=== PATIENT | female | born 1945 | race Caucasian/White ===

== ENCOUNTER 2019-03-08 10:38 | Emergency (ER) | payer MEDICARE ==
[2019-03-08 11:13] VITALS: BP 135/84
--- NOTE | 2019-03-08 11:21 | UC ---
UC General HPI - HPI Summary HPI Summary: per triage, Urinary frequency, blood in urine and burning since this morning. Denies lower back pain. NO FEVER, ABDOMINAL OR FLANK PAIN. - History of Current Complaint Chief Complaint: UCGU Stated Complaint: URINARY COMPLAINT Time Seen by Provider: 03/08/19 11:01 Hx Obtained From: Patient Onset/Duration: Gradual Onset Timing: Constant Pain Intensity: 0 - Allergy/Home Medications Allergies/Adverse Reactions: Allergies Allergy/AdvReac Type Severity Reaction Status Date / Time No Known Allergies Allergy Verified 03/08/19 11:09 Home Medications: Home Medications Apixaban* [Eliquis*] 5 mg PO BID 03/08/19 [History Confirmed 03/08/19] Aspirin EC TAB* [Ecotrin EC Low Dose 81 MG*] 81 mg PO DAILY 03/08/19 [History Confirmed 03/08/19] Biotin 5,000 mcg PO DAILY 03/08/19 [History Confirmed 03/08/19] Cranberry 400 mg PO DAILY 03/08/19 [History Confirmed 03/08/19] Fexofenadine (NF) [Nora 180 (NF)] 180 mg PO DAILY 03/08/19 [History Confirmed 03/08/19] Fluticasone Furoate [Arnuity Ellipta] 50 mcg IH DAILY 03/08/19 [History Confirmed 03/08/19] Furosemide TAB* [Lasix TAB*] 20 mg PO BID 03/08/19 [History Confirmed 03/08/19] Levothyroxine TAB* [Synthroid TAB*] 25 mcg PO 0800 03/08/19 [History Confirmed 03/08/19] Lysine 500 mg PO DAILY 03/08/19 [History Confirmed 03/08/19] Metoprolol Succinate XL TAB* [Toprol XL TAB*] 75 mg PO DAILY 03/08/19 [History Confirmed 03/08/19] Multivitamins/Minerals TAB* [Theragran/minerals TAB*] 1 tab PO DAILY 03/08/19 [ History Confirmed 03/08/19] Provo-3 Fatty Acids [Fish Oil Concentrate] 8,000 mg PO BID 03/08/19 [History Confirmed 03/08/19] Ramipril CAP* [Altace CAP*] 2.5 mg PO DAILY 03/08/19 [History Confirmed 03/08/19 ] Simvastatin [Zocor] 40 mg PO DAILY 03/08/19 [History Confirmed 03/08/19] Super D Immune Complex 1 tab PO DAILY 03/08/19 [History Confirmed 03/08/19] Venlafaxine EXT RELEASE CAP* [Effexor Xr CAP*] 150 mg PO DAILY 03/08/19 [ History Confirmed 03/08/19] Vitamin B Complex CAP* [B Complex CAP*] 1 cap PO DAILY 03/08/19 [History Confirmed 03/08/19] metFORMIN* [Glucophage 500 MG TAB *] 500 mg PO BID 03/08/19 [History Confirmed 03/08/19] PMH/Surg Hx/FS Hx/Imm Hx Endocrine History: Diabetes, Dyslipidemia Cardiovascular History: Hypertension Respiratory History: Asthma Psychological History: Depression - Surgical History Surgical History: Yes Surgery Procedure, Year, and Place: R hip placement. cyst removal from breasts - Social History Alcohol Use: Rare Substance Use Type: None Smoking Status (MU): Former Smoker Review of Systems All Other Systems Reviewed And Are Negative: Yes Constitutional: Negative: Fever, Chills Gastrointestinal: Negative: Abdominal Pain Genitourinary: Positive: Dysuria, Hematuria, Frequency, Urgency Physical Exam Triage Information Reviewed: Yes Appearance: Well-Appearing Vital Signs: Initial Vital Signs Temp 97.9 F 03/08/19 11:06 Pulse 115 03/08/19 11:06 Resp 16 03/08/19 11:06 BP 135/84 03/08/19 11:06 Pulse Ox 97 03/08/19 11:06 Vital Signs Reviewed: Yes Eyes: Positive: Conjunctiva Clear Neck: Positive: Supple Respiratory: Positive: Lungs clear Cardiovascular: Positive: RRR. Negative: Tachycardia Abdomen Description: Positive: Nontender, No Organomegaly, Soft. Negative: CVA Tenderness (R), CVA Tenderness (L) Bowel Sounds: Positive: Present Musculoskeletal: Positive: ROM Intact Neurological: Positive: Alert Psychological: Positive: Age Appropriate Behavior Skin Exam: Normal Diagnostics - Laboratory Lab Results: U/A=PROTEIN, KETONES, GLUCOSE, BLOOD, BILIRUBIN AND LEUKOCYTES. CULTURE PENDING. Course/Dx - Course Course Of Treatment: U/A RESULT D/W PT. HX DM PLUS PT ON PREDNISONE FOR HER ASTHMA. SHE AGREES TO F/ U WITH HER PCP IN 1 WEEK FOR A RECHECK. IMPORTANCE OF A REPEAT U/A ADVISED. - Diagnoses Provider Diagnosis: Dysuria Discharge - Sign-Out/Discharge Documenting (check all that apply): Patient Departure All imaging exams completed and their final reports reviewed: No Studies - Discharge Plan Condition: Stable Disposition: HOME Prescriptions: Cephalexin CAP* [Keflex CAP*] 500 mg PO BID 7 Days #14 cap Patient Education Materials: Dysuria (ED) Referrals: Non Staff,Doctor [Primary Care Provider] - Additional Instructions: FOLLOW UP WITH YOUR PRIMARY CARE IN [place] IN 7 DAYS FOR A RECHECK OR SOONER IF WORSE. - Billing Disposition and Condition Condition: STABLE Disposition: Home
--- NOTE | 2019-03-10 07:35 | UC ---
- Progress Note Progress Note: Seen with occasional gross hematuria. Please call to advise that the culture was negative, she can stop the use of cephalexin, and it is important that she follow up with her primary doctor to work up urinary symptoms. Course/Dx - Diagnoses Provider Diagnoses: Dysuria Discharge - Sign-Out/Discharge Documenting (check all that apply): Patient Departure All imaging exams completed and their final reports reviewed: No Studies - Discharge Plan Condition: Stable Disposition: HOME Prescriptions: Cephalexin CAP* [Keflex CAP*] 500 mg PO BID 7 Days #14 cap Patient Education Materials: Dysuria (ED) Referrals: Non Staff,Doctor [Primary Care Provider] - Additional Instructions: FOLLOW UP WITH YOUR PRIMARY CARE IN [place] IN 7 DAYS FOR A RECHECK OR SOONER IF WORSE. - Billing Disposition and Condition Condition: STABLE Disposition: Home
== END 2019-03-08 11:33 | disposition home or self-care (01) ==
LOC: UCCORT 10:38
DX: R30.0 Dysuria (principal); R31.9 Hematuria, unspecified; E11.9 Type 2 diabetes mellitus without complications; Z79.84 Long term (current) use of oral hypoglycemic drugs; E78.5 Hyperlipidemia, unspecified; I10 Essential (primary) hypertension; F32.9 Major depressive disorder, single episode, unspecified; Z87.891 Personal history of nicotine dependence
CPT/HCPCS: 81003; 87086; 99212; G0463